=== PATIENT | female | born 1935 | race Caucasian/White ===

== ENCOUNTER 2018-08-15 14:46 | Emergency (ER) | payer MEDICARE, OTHER, SELFPAY ==
[2018-08-15 14:47] VITALS: BP 150/83; PULSE 54; RESP 11; TEMP 36.7; O2SAT 100; BMI 19.5
--- NOTE | 2018-08-15 15:43 | CT_ITS ---
STUDY: CT BRAIN WITHOUT CONTRAST REASON FOR EXAM: Female, 83 years old. Fell and hit back of the head. No loss of consciousness. RADIATION DOSAGE (If Supplied By Facility): CTDIvol = ( 44.99 ) mGy, DLP = ( 779.24 ) mGycm TECHNIQUE: Transaxial CT imaging of the brain was performed without administration of intravenous contrast material. Individualized dose optimization techniques were used for this CT. COMPARISON: No relevant priors. FINDINGS: Very minimal stranding in the subcutaneous fat overlying the left posterior parietal region. Normal calvarium. There is moderate cerebral atrophy with widening of the extra-axial spaces and ventricular dilatation. There are areas of decreased attenuation within the white matter tracts of the supratentorial brain, consistent with microvascular disease changes. 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 Normal left basal ganglia and bilateral thalami. Normal brainstem. Normal cerebellum. There is no intracranial hemorrhage. There are no findings of an acute ischemic infarction. Normal visualized paranasal sinuses. CT/Brain/Head without Contrast IMPRESSION: 1. Chronic involutional changes without evidence of acute intracranial or calvarial abnormality. 2. Minimal soft tissue contusion in the left posterior parietal region. Electronically Signed: Jovanny Meza DO at 16:15 EDT Tel [phone], Service support ,
--- NOTE | 2018-08-15 15:43 | CT_ITS ---
STUDY: CT CERVICAL SPINE WITHOUT CONTRAST REASON FOR EXAM: Female, 83 years old. Fall. Hit back of head. No loss of consciousness. RADIATION DOSAGE (If Supplied By Facility): CTDIvol = ( 13.33 ) mGy, DLP = ( 243.88 ) mGycm TECHNIQUE: High resolution transaxial imaging was performed without contrast material. Sagittal and coronal images were reconstructed. Individualized dose optimization techniques were used for this CT. COMPARISON: None FINDINGS: Normal craniovertebral junction. There are degenerative changes of the anterior atlantoaxial articulation. Normal odontoid process. Normal cervical lordosis. 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 Otherwise normal vertebral bodies and posterior osseous elements. C2-3: Normal endplates. Mild loss of disc height. Mild facet and uncovertebral joint degenerative change. Normal central canal and intervertebral neuroforamina. C3-4: Normal endplates. Slight loss of disc height. Facet and uncovertebral joint degenerative change. Normal central canal. Minimal narrowing of bilateral intervertebral neuroforamina. C4-5: Also disc height with minimal endplate spondylosis. Facet and uncovertebral joint degenerative change. Normal central canal. Narrowing of bilateral intervertebral neuroforamina. C5-6: Marked loss of disc height with endplate spondylosis. Facet and uncovertebral joint degenerative change. Normal central canal period narrowing of bilateral intervertebral neuroforamina. C6-7: Normal endplates. Mild loss of disc height. There is facet joint degenerative change. Normal central canal and intervertebral neuroforamina. C7-T1: Normal endplates. Normal disc height and morphology. Facet joint degenerative change. Normal central canal and intervertebral neuroforamina. There is minimal apical pleural thickening. The lungs are otherwise clear. Atherosclerotic changes in both carotid bifurcations. CT/Spine Cervical without Contras IMPRESSION: Degenerative changes of cervical spine without acute fracture or subluxation. Electronically Signed: Jovanny Meza DO at 16:19 EDT Tel [phone], Service support ,
--- NOTE | 2018-08-15 16:25 | ED.VISSUMM ---
- ER Visit Summary Date of Service: 08/15/18 Chief Complaint: Head injury History of Present Illness: The patient is a 83 F who sustained a fall today striking the left parietal head. She notes pain in her neck and the back of her head. No vomiting. History from the patient is limited due to dementia but her is with her. She is not on any blood thinners Physical Examination: Afebrile vital signs are stable Gen: Well-nourished well-developed Head: Normocephalic tender to palpation in the left parietal occipital region and in the left paraspinal neck and midline. Eyes: Perrl EOMI ENT: TMs clear no rhinorrhea moist mucous membranes Neck: Supple no lymphadenopathy no JVD nontender CVS: Regular rate rhythm no murmurs normal S1-S2 Respiratory: No distress clear to auscultation bilaterally chest nontender Abdomen: Soft nontender nondistended normal bowel sounds no masses Back: Nontender Extremity: Nontender no edema Skin: Normal color no rash Neuro: alert and confused CN II-XII intact normal strength sensation Psych: Normal affect normal mood Test Results: CT head and cervical spine were negative for intracranial hemorrhage or fracture. Emergency Department Course and Treatment: Patient will be discharged home with supportive care return if worsening or concerns Impression: 1. Closed head injury 2. Scalp contusion 3. Cervical muscle strain This note was generated with Oneexchangestreet dictation software. It may contain incorrect words, spelling, and punctuation that were not noted in review of the chart prior to signing ED Disposition - Plan for ED Patient: Disposition: Home or Assisted Living Instructions: ED Head Injury Closed, ED Sprain Strain Neck Referrals: Trace Sanford [Primary Care Provider] - 1 Week if not improving
[2018-08-15 16:53] VITALS: BP 108/75; PULSE 59; RESP 19; O2SAT 98
== END 2018-08-15 17:10 | disposition home or self-care (01) ==
PROVIDERS: Emergency Provider Emergency Medicine; Family Provider Family Medicine
DX: S00.03XA Contusion of scalp, initial encounter (principal); S16.1XXA Strain of muscle, fascia and tendon at neck level, initial encounter; R40.2410 Glasgow coma scale score 13-15, unspecified time; W19.XXXA Unspecified fall, initial encounter; Y93.9 Activity, unspecified; Y92.9 Unspecified place or not applicable; F03.90 Unspecified dementia, unspecified severity, without behavioral disturbance, psychotic disturbance, mood disturbance, and anxiety; E78.00 Pure hypercholesterolemia, unspecified; Z79.899 Other long term (current) drug therapy
CPT/HCPCS: 70450; 72125; 99284

== ENCOUNTER 2018-08-16 10:40 | Observation (INO) | payer MEDICARE, OTHER, SELFPAY ==
[2018-08-15 14:47] VITALS: BMI 19.5
[2018-08-16] VITALS (7 sets, daily range): BP systolic 137–179; BP diastolic 59–84; PULSE 48–59; RESP 9–19; TEMP 36.7–36.8; O2SAT 93–100; BMI 19.3
--- NOTE | 2018-08-16 11:05 | EKG12_ITS ---
Test Reason : FALL Blood Pressure : / mmHG Vent. Rate : 050 BPM Atrial Rate : 050 BPM P-R Int : 264 ms QRS Dur : 132 ms QT Int : 518 ms P-R-T Axes : 042 -10 -16 degrees QTc Int : 472 ms Sinus bradycardia with 1st degree A-V block Right bundle branch block Abnormal ECG Confirmed by RUSSEL SILVA, RENETTA ([id number]), assistant film editor RENAY ZULETA ([id number]) on 08/21/2018 12:58:53 PM Referred By: Odilon Kaur Confirmed By:RENETTA GOODE MD
--- NOTE | 2018-08-16 11:14 | ED.VISSUMM ---
- ER Visit Summary Date of Service: 08/16/18 Chief Complaint: Syncope after fall History of Present Illness: The patient is a 83 F who presents with syncope after falling yesterday. states that she fell yesterday. She was walking into the house and just fell backwards. From what sounds like it was not mechanical. She was seen here and had CAT scans of the head and cervical spine that were negative and was sent home. He states that she keeps passing out today. He describes it as trying to get her up and she just goes limp in his arms. She is not her normal self according to him. The patient herself denies any pain. She does have a history of dementia and does not contribute much to the history. Physical Examination: Vital signs reviewed. HEENT exam unremarkable. Heart is regular rate and rhythm without murmurs. Lungs are clear to auscultation. Abdomen is soft and nontender. Extremities reveal no edema. Skin exam normal. Neurologic exam shows that she has dementia at baseline but otherwise is unremarkable. Test Results: EKG is normal sinus rhythm with rate of 50. Nonspecific ST and T wave changes noted. First-degree AV block noted. Laboratory studies are normal Emergency Department Course and Treatment: The patient's blood pressure improved throughout her stay. is uncomfortable taking the patient home due to her syncopal episodes. She is a high fall risk at home. I also feel would not be safe to send her back home. I discussed with hospitalist for admission. Treatment Plan: [] Disposition: Admit Impression: Syncope This note was generated with [employer] dictation software. It may contain incorrect words, spelling, and punctuation that were not noted in review of the chart prior to signing ED Disposition - Plan for ED Patient: Referrals: Trace Sanford [Primary Care Provider] -
--- NOTE | 2018-08-16 11:16 | NURSING ---
NO OLD EKG TO OBTAIN
[2018-08-16 11:43] LABS: Absolute Lymphocyte Count 1.77 X10^3/ul (0.83-4.51); Absolute Neutrophil Count 4.1 X10^3/uL (2.0-7.7); Basophil# 0.04 X10^3/uL; Basophil% 0.6 % (0-1); Eosinophil# 0.15 X10^3/uL; Eosinophils% 2.2 % (0-5); Hematocrit 42.4 % (37-47); Hemoglobin 13.9 g/dl (12.0-15.0); Lymphocyte # 1.77 X10^3/ul (4.0); Lymphocyte % 26.4 % (19-41); Mean Corp Hgb Conc 32.8 g/gl (32-36); Mean Corpuscular Volume 91.4 fL (81-99); Monocyte# 0.61 X10^3/uL; Monocyte% 9.1 % (0-10); Neutrophil # 4.12 X10^3/uL (2.7-7.7); Neutrophil % 61.6 % (47-70); Platelet Count 162 K/mm3 (150-450); RBC Distribution Width CV 14.7 % (11.6-14.6); RBC Distribution Width SD 47.8 fl (35.1-43.9); Red Blood Count 4.64 M/mm3 (4.2-5.4); White Blood Count 6.7 K/mm3 (4.4-11.0)
[2018-08-16 11:45] LABS: POSITIVE COUNT NO; POSITIVE DIFFERENTIAL NO; POSITIVE MORPHOLOGY NO
[2018-08-16 12:20] LABS: Anion Gap 5 (5-15); BUN 12 mg/dL (7-18); Calcium,Total 9.3 mg/dL (8.5-10.1); Chloride 106 mmol/L (98-107); Creatinine, Serum 0.92 mg/dL (0.55-1.02); EST Glomerular Filtration Rate 62 mL/min (>60); Est Glom Filt Rate - Afr Amer 75 mL/min (>60); Estimated Creatinine Clearance 39.15 ml/min; Glucose 99 mg/dL (74-106); Potassium 3.6 mmol/L (3.5-5.1); Sodium Level 142 mmol/L (136-145)
--- NOTE | 2018-08-16 12:58 | CASEMGMT ---
RN CM Assessment Introduced role of RN CM to patient and patient Joe at bedside.? Patient is alert, h/o Dementia, information obtained from Joe. Care providers, pharmacy, and demographics verified. Presentation: Fell/Syncope yesterday and hit head on concrete, was seen in ER and CT head and Cervical Spine were Negative. Today is having syncopal episodes, going limp in husbands arms. Admit Dx: Syncope Re-Admit: No Barriers/Issues: None. They are Official Residents of [place] and reside there 7 months out of the Year and reside in [place] 5 months Out of the year. PCP: Trace Sanford Specialists: Cardio- Dr Duque Preferred Pharmacy: [facility] Insurance: [facility] A[facility], O Rx Benefit:?Yes LNOK: Joe Jerez LW/HPOA: States yes to both, HPOA- Joe Jerez and states their Dtr is the alternative agent. Living Arrangements:?Lives with in a Condo, 1 small step to enter. ADL?s: Ambulates independently, requires assistance of all ADL's by . Transportation: transports and will on DC DME: None, no preference on DME Company if needed. HHC: None, no preference on Agency if needed. SNF: None, Does not wish to go to a SNF. Goal: Home and open to HHC if recommended. DC PLAN: Home with possible HH. IRENE Bhakta
[2018-08-16] MEDS: 0.9% Normal Saline 1,000 ML 150 ML IV (13:54)
--- NOTE | 2018-08-16 16:35 | PCM.HP.STD ---
Problem List (1) Syncope Status: Acute (2) Orthostatic hypotension Status: Acute History of Present Illness Date of Admission: 08/16/18 Chief Complaint: syncope The patient is a 83 year old F presents with several syncopal episodes. Yesterday she got up, pass out, striking the back of her head was seen in the ED and had CT images that were negative and sent home. Today, upon sitting up from laying she passed out. That occurred 3 times. She was sent to the ED again today. Labs were unremarkable. History is obtained from the ED physician and her as she is a poor informant given confusion from her dementia. Per her , this has not occurred before. Does not eat well, but this is chronic.[] Past Medical History Medical History: Medical History (Last Updated 08/16/18 @ 16:39 by Odilon Kaur DO) Dementia F03.90 Hyperlipidemia E78.5 HTN (hypertension) I10 Allergies Penicillins [PCN] Allergy (Verified 08/16/18 11:18) Swelling Home Medications: Ambulatory Orders Medication Instructions Recorded Amlodipine [Norvasc] 2.5 mg PO DAILY 08/15/18 Atorvastatin Calcium [Lipitor] 10 mg PO QHS 08/15/18 Bisoprolol/Hydrochlorothiazide 2.5 mg PO DAILY 08/15/18 [Ziac 2.5-6.25 mg Tablet] Memantine HCl [Namenda] 10 mg PO BID 08/15/18 Rivastigmine 13.3 mg TD DAILY 08/15/18 Lives: Spouse/ Significant Other Smoking Status: Former smoker Tobacco Use: Cigarettes - *Family History Maternal History Items: Unknown - given her dementia, she is a poor informant. Review of Systems Comment: She is a poor informant given her dementia, adequate review of systems unable to be obtained. Please refer to the HPI for further details. VTE Information - Inpt Only VTE Present on Admission: No VTE Pharm Prophylaxis ordered?: No Reason prophylaxis not ordered:: Procedure Not Indicated Patient Problems: Active and Suspected Problems Syncope (Acute) Orthostatic hypotension (Acute) - Physical Exam General: Alert, No apparent distress, Confused HEENT: Atraumatic, PERRLA, EOMI, Normocephalic Oral: Moist Mucosa, No Gingival or Mucosal Lesions/ Ulcerations Neck: No Nodes, Thyroid Normal Size and Texture Lungs: Clear to auscultation, Normal air movement, No rhonchi, No wheeze Cardiovascular: Regular rate, Regular Rhythm, Normal S1, Normal S2, No murmurs Abdomen: Bowel Sounds Present, Soft, Non Tender, Non-Distended, No Hepato-splenomegaly Extremities: No cyanosis, No Calf Tenderness Skin: No rashes, No breakdown Musculoskeletal: No Tenderness to Palpation of Joints or Extremities, No Muscle Wasting Neurological: Cranial nerves II-XII grossly intact, Motor Exam 5/5 strength throughout Psych/Mental Status: Normal Affect, Appropriate Vital Signs Temp Pulse Resp BP Pulse Ox 36.7 C 52 L 9 L 179/83 H 100 08/16/18 10:44 08/16/18 14:06 08/16/18 10:44 08/16/18 13:47 08/16/18 10:44 Oxygen Delivery Method Room Air Weight: 52.617 kg Body Mass Index (BMI) 19.3 Orthostatic Vital Signs Start: 08/16/18 13:47 Freq: q24h Status: Active Protocol: Activity Type Activity Date Activity User E-Sign Co-Sign Detail Recorded Client Recorded Date Recorded By Document 08/16/18 13:47 MLB [id number] 08/16/18 13:48 MLB 08/16/18 13:47 Orthostatic Vitals Standing -Blood Pressure (90/60-120/80) 148/59 H -Extremity Use Right Arm -Pulse Rate (60-100) 59 L Sitting -Blood Pressure (90/60-120/80) 165/84 H -Extremity Use Right Arm -Pulse Rate (60-100) 52 L Lying -Blood Pressure (90/60-120/80) 179/83 H -Extremity Use Right Arm -Pulse Rate (60-100) 48 L Laboratory Tests Past 24 Hrs 08/16/18 08/16/18 08/16/18 11:22 11:22 11:52 WBC 6.7 RBC 4.64 Hgb 13.9 Hct 42.4 MCV 91.4 MCH 30.0 MCHC 32.8 RDW 14.7 H RDW Differential 47.8 H Plt Count 162 MPV 10.0 Immature Gran % (Auto) 0.100 Neut % (Auto) 61.6 Lymph % (Auto) 26.4 [place] % (Auto) 9.1 Eos % (Auto) 2.2 Baso % (Auto) 0.6 Absolute Neuts (auto) 4.1 Absolute Lymphs (auto) 1.77 Total Counted Not Reportable Sodium Cancelled 142 Potassium Cancelled 3.6 Chloride Cancelled 106 Carbon Dioxide Cancelled 31.0 Anion Gap Cancelled 5 BUN Cancelled 12 Creatinine Cancelled 0.92 Estim Creat Clear Calc Cancelled 39.15 Est GFR (MDRD) Af Amer Cancelled 75 Est GFR (MDRD) Non-Af Cancelled 62 BUN/Creatinine Ratio Cancelled 13.0 Glucose Cancelled 99 Calcium Cancelled 9.3 Troponin I Cancelled < 0.015 Assessment/Plan All Active Problems Syncope (Acute) Orthostatic hypotension (Acute) 1. Syncope: Likely secondary to orthostatic hypotension Patient is a blood pressure drop from laying to standing by 30 points We will also check carotid Dopplers to see if there is any segment carotid stenosis that may be contributing to this Hold her antihypertensives and allow permissive hypertension for now. 2. Orthostatic hypotension IV fluids Recheck orthostats in the morning 3. Hypertension: Will hold amlodipine as well as bisoprolol/HCTZ Permissive hypertension given the orthostatic hypotension 4. Dementia Complicates care Continue with her realistic mean and memantine 5. VTE prophylaxis: Low risk as patient's status is observation and is may be less than 48 hours. Advanced care planning: Spent an additional 15 minutes discussing with the patient's about advanced care planning and description of was involved with CPR. Patient , who is her power of trademark attorney, prefer the patient be DNR Comfort Care arrest at this time. Code Visit OBSV E&M: 23770 Initial observation care L3 Procedures: [id number] Advncd Care Plan 30 Min
--- NOTE | 2018-08-16 16:39 | HP.PCM_ITS ---
Problem List (1) Syncope Status: Acute (2) Orthostatic hypotension Status: Acute History of Present Illness Date of Admission: 08/16/18 Chief Complaint: syncope The patient is a 83 year old F presents with several syncopal episodes. Yesterday she got up, pass out, striking the back of her head was seen in the ED and had CT images that were negative and sent home. Today, upon sitting up from laying she passed out. That occurred 3 times. She was sent to the ED again today. Labs were unremarkable. History is obtained from the ED physician and her as she is a poor informant given confusion from her dementia. Per her , this has not occurred before. Does not eat well, but this is chronic.[] Past Medical History Medical History: Medical History (Last Updated 08/16/18 @ 16:39 by Odilon Kaur DO) Dementia F03.90 Hyperlipidemia E78.5 HTN (hypertension) I10 Allergies Penicillins [PCN] Allergy (Verified 08/16/18 11:18) Swelling Home Medications: Ambulatory Orders Medication Instructions Recorded Amlodipine [Norvasc] 2.5 mg PO DAILY 08/15/18 Atorvastatin Calcium [Lipitor] 10 mg PO QHS 08/15/18 Bisoprolol/Hydrochlorothiazide 2.5 mg PO DAILY 08/15/18 [Ziac 2.5-6.25 mg Tablet] Memantine HCl [Namenda] 10 mg PO BID 08/15/18 Rivastigmine 13.3 mg TD DAILY 08/15/18 Lives: Spouse/ Significant Other Smoking Status: Former smoker Tobacco Use: Cigarettes - *Family History Maternal History Items: Unknown - given her dementia, she is a poor informant. Review of Systems Comment: She is a poor informant given her dementia, adequate review of systems unable to be obtained. Please refer to the HPI for further details. VTE Information - Inpt Only VTE Present on Admission: No VTE Pharm Prophylaxis ordered?: No Reason prophylaxis not ordered:: Procedure Not Indicated Patient Problems: Active and Suspected Problems Syncope (Acute) Orthostatic hypotension (Acute) - Physical Exam General: Alert, No apparent distress, Confused HEENT: Atraumatic, PERRLA, EOMI, Normocephalic Oral: Moist Mucosa, No Gingival or Mucosal Lesions/ Ulcerations Neck: No Nodes, Thyroid Normal Size and Texture Lungs: Clear to auscultation, Normal air movement, No rhonchi, No wheeze Cardiovascular: Regular rate, Regular Rhythm, Normal S1, Normal S2, No murmurs Abdomen: Bowel Sounds Present, Soft, Non Tender, Non-Distended, No Hepato- splenomegaly Extremities: No cyanosis, No Calf Tenderness Skin: No rashes, No breakdown Musculoskeletal: No Tenderness to Palpation of Joints or Extremities, No Muscle Wasting Neurological: Cranial nerves II-XII grossly intact, Motor Exam 5/5 strength throughout Psych/Mental Status: Normal Affect, Appropriate Vital Signs Temp Pulse Resp BP Pulse Ox 36.7 C 52 L 9 L 179/83 H 100 08/16/18 10:44 08/16/18 14:06 08/16/18 10:44 08/16/18 13:47 08/16/18 10:44 Oxygen Delivery Method Room Air Weight: 52.617 kg Body Mass Index (BMI) 19.3 Orthostatic Vital Signs Start: 08/16/18 13:47 Freq: q24h Status: Active Protocol: Activity Type Activity Date Activity User E-Sign Co-Sign Detail Recorded Client Recorded Date Recorded By Document 08/16/18 13:47 MLB [id number] 08/16/18 13:48 MLB 08/16/18 13:47 Orthostatic Vitals Standing -Blood Pressure (90/60-120/80) 148/59 H -Extremity Use Right Arm -Pulse Rate (60-100) 59 L Sitting -Blood Pressure (90/60-120/80) 165/84 H -Extremity Use Right Arm -Pulse Rate (60-100) 52 L Lying -Blood Pressure (90/60-120/80) 179/83 H -Extremity Use Right Arm -Pulse Rate (60-100) 48 L Laboratory Tests Past 24 Hrs 08/16/18 08/16/18 08/16/18 11:22 11:22 11:52 WBC 6.7 RBC 4.64 Hgb 13.9 Hct 42.4 MCV 91.4 MCH 30.0 MCHC 32.8 RDW 14.7 H RDW Differential 47.8 H Plt Count 162 MPV 10.0 Immature Gran % (Auto) 0.100 Neut % (Auto) 61.6 Lymph % (Auto) 26.4 Rains % (Auto) 9.1 Eos % (Auto) 2.2 Baso % (Auto) 0.6 Absolute Neuts (auto) 4.1 Absolute Lymphs (auto) 1.77 Total Counted Not Reportable Sodium Cancelled 142 Potassium Cancelled 3.6 Chloride Cancelled 106 Carbon Dioxide Cancelled 31.0 Anion Gap Cancelled 5 BUN Cancelled 12 Creatinine Cancelled 0.92 Estim Creat Clear Calc Cancelled 39.15 Est GFR (MDRD) Af Amer Cancelled 75 Est GFR (MDRD) Non-Af Cancelled 62 BUN/Creatinine Ratio Cancelled 13.0 Glucose Cancelled 99 Calcium Cancelled 9.3 Troponin I Cancelled < 0.015 Assessment/Plan All Active Problems Syncope (Acute) Orthostatic hypotension (Acute) 1. Syncope: * Likely secondary to orthostatic hypotension * Patient is a blood pressure drop from laying to standing by 30 points * We will also check carotid Dopplers to see if there is any segment carotid stenosis that may be contributing to this * Hold her antihypertensives and allow permissive hypertension for now. 2. Orthostatic hypotension * IV fluids * Recheck orthostats in the morning 3. Hypertension: * Will hold amlodipine as well as bisoprolol/HCTZ * Permissive hypertension given the orthostatic hypotension 4. Dementia * Complicates care * Continue with her realistic mean and memantine 5. VTE prophylaxis: Low risk as patient's status is observation and is may be less than 48 hours. Advanced care planning: Spent an additional 15 minutes discussing with the patient's about advanced care planning and description of was involved with CPR. Patient , who is her power of family law attorney, prefer the patient be DNR Comfort Care arrest at this time. Code Visit OBSV E&M: 33732 Initial observation care L3 Procedures: [id number] Advncd Care Plan 30 Min
[2018-08-16] MEDS: Rivastigmine 9.5mg Patch 1 PATCH TRANSDERM. (16:40)
[2018-08-16] MEDS: Memantine Hydrochloride 10 MG Tablet PO ×2 (16:41→21:16)
--- NOTE | 2018-08-16 16:46 | CDU_ITS ---
Reason For Study: syncope Rt. Velocities/BP Lt. Velocities/BP Prox CCA 73.4/12.1 cm/sec. Prox CCA 66.2/13.5 cm/sec. Mid CCA 64.3/13.4 cm/sec. Mid CCA 64.0/15.7 cm/sec. Dist CCA 47.6/12.4 cm/sec. Dist CCA 48.7/12.4 cm/sec. Prox ICA 59.7/10.2 cm/sec. Prox ICA 43.2/10.2 cm/sec. Mid ICA 48.7/8.0 cm/sec. Mid ICA 83.8/21.2 cm/sec. Dist ICA 49.8/12.4 cm/sec. Dist ICA 67.8/15.6 cm/sec. Rt. ICA/CCA = .8. Lt. ICA/CCA = 1.3. Prox ECA 57.5/10.2 cm/sec. Prox ECA 73.9/9.1 cm/sec. Rt. Vert. 31.1/8.0 cm/sec. Lt. Vert. 36.9/8.1 cm/sec. Right Extracranial There is intimal thickening but no significant atherosclerotic plaque noted in the right common carotid artery. There is heterogeneous, irregular atherosclerotic plaque noted in the right internal carotid artery. There is intimal thickening but no significant atherosclerotic plaque noted in the right external carotid artery. Antegrade flow is noted in the right vertebral artery. Left Extracranial There is intimal thickening but no significant atherosclerotic plaque noted in the left common carotid artery. There is intimal thickening but no significant atherosclerotic plaque noted in the left internal carotid artery. There is intimal thickening but no significant atherosclerotic plaque noted in the left external carotid artery. Antegrade flow is noted in the left vertebral artery. There is heterogeneous, smooth atherosclerotic plaque noted in the left bulb. Procedure Carotid Duplex [id number]. The exam was diagnostic. Exam performed portable in patient room. Interpretation Summary Irregular plague at the proximal right internal carotid with <50% stenosis. <50% stenosis right external carotid <50% stenosis left internal carotid <50% stenosis left external carotid Patent and antegrade vertebrals bilaterally Ordering Physician: Odilon Kaur Performed By: Laz Ayoub RVT
[2018-08-16] MEDS: Atorvastatin Calcium 20 MG Tablet PO (21:16)
[2018-08-17] VITALS (7 sets, daily range): BP systolic 109–151; BP diastolic 68–88; PULSE 55–88; RESP 16–18; TEMP 36.4–37.2; O2SAT 95–97
[2018-08-17] MEDS: Rivastigmine 9.5mg Patch 1 PATCH TRANSDERM. (09:31)
[2018-08-17] MEDS: Memantine Hydrochloride 10 MG Tablet PO (09:36)
--- NOTE | 2018-08-17 11:09 | CASEMGMT ---
Patient has a Healthcare Power of Worship Director and a Healthcare Living Will. She and her are aware they are not on file at [facility]. Trina DREW MSW
--- NOTE | 2018-08-17 13:49 | DCINST_ITS ---
- Discharge Diagnoses Current Active Problems: Current Active and Chronic Problems (Last Updated 08/16/18 @ 16:39 by Odilon Kaur DO) Syncope (Acute) Orthostatic hypotension (Acute) You will use the following diet at home:: Cardiac Your food should be the consistency of: Regular Your liquids should be the consistency of: Regular/Thin Discharge Activity: Return to Normal Activity, May Not Drive Allergies/Adverse Reactions: Allergies Penicillins [PCN] Allergy (Verified 08/16/18 11:18) Swelling Medications to take at Discharge Atorvastatin Calcium [Lipitor] 10 mg PO QHS 08/15/18 Memantine HCl [Namenda] 10 mg PO BID 08/15/18 Rivastigmine 13.3 mg TD DAILY 08/15/18 Primary Care Physician: Trace Sanford [Primary Care Provider] - Please follow up with your Primary Care Physician in: 1-2 weeks Test Results: Test results from this visit will be discussed in further detail at your follow- up appointment, if applicable. Please Follow Up With: Cardiology When: 2-3 weeks Proposed Discharge Date: 08/17/18
--- NOTE | 2018-08-17 13:49 | PCM.DC.SUM ---
<Scottie Mckeon - Last Filed: 08/17/18 14:06> Discharge Date and Diagnosis Date of Admission: 08/16/18 Date of Discharge: 08/17/18 - Primary Discharge Diagnosis Active and Suspected Problems (Last Updated 08/16/18 @ 16:39 by Odilon Kaur DO) Syncope secondary to orthostatic hypotension, secondary to polypharmacy History of hypertension History of dementia Hyperlipidemia Hospital Course and Treatment Imaging Results: CT/Brain/Head without Contrast IMPRESSION: 1. Chronic involutional changes without evidence of acute intracranial or calvarial abnormality. 2. Minimal soft tissue contusion in the left posterior parietal region. CT/Spine Cervical without Contras IMPRESSION: Degenerative changes of cervical spine without acute fracture or subluxation. Carotid US - final report pending. Operations: None Procedures: None Summary of Care Provided: Hospital course: The patient is a 83 year old F with a past medical history of orthostatic hypotension and syncope secondary to medications, also with a history of hypertension, hyperlipidemia, dementia, who presented to the emergency room with 3 syncopal episodes at home. The day prior she had had a syncopal episode as well, she had come to the emergency room as she had struck the back of her head, CT images showed soft tissue swelling no other acute processes and she was sent home. The following day she tried to get out of bed 3 times and passed out each time. She was brought back to the emergency room. She had significant orthostatic hypotension, EKG showing mild sinus bradycardia with a first-degree AV block, negative troponin. She was given IV fluids, and her home hypertension medications were held. The following morning she underwent a carotid ultrasound which did show an irregular plaque in the right ICA, however the final read out is pending. We attempted to read her loop recorder however it is no longer functional. She had this placed about 4 years ago after having similar events-syncope while adjusting blood pressure medications. The following morning her orthostatic vitals were negative, and her BP and pulse were in normal range. She was discharged home in stable condition. Her antihypertensive medications were discontinued at discharge. We advised her to follow-up with her PCP in 1 to 2 weeks, and to follow-up with cardiology in 2 to 3 weeks. This patient was seen by Scottie Mckeon PA-C under the supervision of Doctor Natasha. [] - Physical Exam General: Alert, Oriented x3, Cooperative HEENT: Atraumatic, PERRLA, EOMI, Normocephalic Neck: Supple, No JVD, Negative Carotid Bruits Lungs: Clear to auscultation, Normal air movement Cardiovascular: Regular rate, No murmurs Abdomen: Bowel Sounds Present, Soft, Non Tender Extremities: No edema, Capillary Refill Less than 3 Seconds Skin: No rashes, No breakdown Musculoskeletal: No Tenderness to Palpation of Joints or Extremities Neurological: Cranial nerves II-XII grossly intact Psych/Mental Status: Normal Affect, Appropriate, Alert and oriented to time, place, person, mood and affect Vital Signs Temp Pulse Resp BP Pulse Ox 97.6 F L 67 16 126/75 H 96 08/17/18 09:27 08/17/18 11:40 08/17/18 09:27 08/17/18 11:40 08/17/18 09:27 Oxygen Delivery Method Room Air Weight: 116 lb 0.01 oz Body Mass Index (BMI) 19.3 Orthostatic Vital Signs Start: 08/16/18 13:47 Freq: 0600 Status: Active Protocol: Activity Type Activity Date Activity User E-Sign Co-Sign Detail Recorded Client Recorded Date Recorded By Document 08/17/18 11:40 RYW [id number] 08/17/18 11:58 RYW 08/17/18 11:40 Orthostatic Vitals Standing -Blood Pressure (90/60-120/80) 119/68 -Extremity Use Left Arm -Pulse Rate (60-100) 73 Sitting -Blood Pressure (90/60-120/80) 109/73 -Extremity Use Left Arm -Pulse Rate (60-100) 67 Lying -Blood Pressure (90/60-120/80) 126/75 H -Extremity Use Left Arm -Pulse Rate (60-100) 67 Intake and Output for Last 24 Hours 08/15/18 08/16/18 08/17/18 23:59 23:59 23:59 Intake Total 1089 / 1089 752 / 752 Output Total 400 / 400 350 / 350 Balance 689 / 689 402 / 402 Discharge Diet: Low fat/ Low Cholesterol, 2000 mg Sodium Diet Discharge Activity: Return to Normal Activity, May Not Drive Home Medications: Medications to take at Discharge Atorvastatin Calcium [Lipitor] 10 mg PO QHS 08/15/18 Memantine HCl [Namenda] 10 mg PO BID 08/15/18 Rivastigmine 13.3 mg TD DAILY 08/15/18 Primary Care Physician: Trace Sanford [Primary Care Provider] - Please follow up with your Primary Care Physician in: 1-2 weeks Please Follow Up With: Cardiology When: 2-3 weeks Disposition: Home Minutes spent on discharge:: 35 Patient Condition:: Stable Medical Necessity - Tobacco Use Smoking Status: Former smoker Tobacco Use: Cigarettes Meaningful Use Info Meaningful Use Diagnoses (Choose all that apply): None applicable <Odilon Kaur - Last Filed: 08/17/18 15:23> Hospital Course and Treatment Operations: None Procedures: None Summary of Care Provided: Patient seen and examined independently. Data reviewed. I agree with the above note by the physician assistant professor surgical technology. The patient is a 83 year old F resents with syncopal episodes. Patient was seen prior to admission where she had stood up and then passed out hitting her head. Sent home. But at home patient had syncopal episode just sitting up from laying. Presented to the emergency room and was evaluated. Patient did have positive orthostatic vital signs and her antihypertensives were held. Orthostatic vital signs eventually did improve and patient has remained asymptomatic. Discussed with the patient's , as patient is demented and would not be able to retain information, that the plan is to continue to hold antihypertensives at this time given the orthostatic hypotension and right now the risks outweigh the benefits. Also discussed with the patient's and confirm that the patient's CODE STATUS is DNR Comfort Care arrest. [] - Physical Exam General: Alert, Cooperative HEENT: Atraumatic, Normocephalic Lungs: Clear to auscultation, Normal air movement, No rhonchi, No wheeze Cardiovascular: Regular rate, Regular Rhythm, Normal S1, Normal S2, No murmurs Abdomen: Bowel Sounds Present, Soft, Non Tender, Non-Distended Extremities: No edema, No Calf Tenderness Skin: No rashes, No breakdown Psych/Mental Status: Normal Affect, Appropriate Vital Signs Temp Pulse Resp BP Pulse Ox 36.4 C L 67 16 126/75 H 96 08/17/18 09:27 08/17/18 11:40 08/17/18 09:27 08/17/18 11:40 08/17/18 09:27 Oxygen Delivery Method Room Air Weight: 52.617 kg Body Mass Index (BMI) 19.3 Intake and Output for Last 24 Hours 08/15/18 08/16/18 08/17/18 23:59 23:59 23:59 Intake Total 1089 / 1089 752 / 752 Output Total 400 / 400 350 / 350 Balance 689 / 689 402 / 402 Discharge Diet: Low fat/ Low Cholesterol, 2000 mg Sodium Diet Discharge Activity: Return to Normal Activity, May Not Drive Disposition: Home Minutes spent on discharge:: 35 Medical Necessity - Tobacco Use Smoking Status: Former smoker Tobacco Use: Cigarettes Meaningful Use Info Meaningful Use Diagnoses (Choose all that apply): None applicable Code Visit OBSV E&M: 35514 Observation care discharge
--- NOTE | 2018-08-17 13:55 | DS.PCM_ITS ---
Addendum entered and electronically signed by LEE ANN Perez 08/17/18 14:06: Code Visit Addendum: Discharged home with home health. Original Note: <Scottie Mckeon - Last Filed: 08/17/18 14:06> Discharge Date and Diagnosis Date of Admission: 08/16/18 Date of Discharge: 08/17/18 - Primary Discharge Diagnosis Active and Suspected Problems (Last Updated 08/16/18 @ 16:39 by Odilon Kaur DO) Syncope secondary to orthostatic hypotension, secondary to polypharmacy History of hypertension History of dementia Hyperlipidemia Hospital Course and Treatment Imaging Results: CT/Brain/Head without Contrast IMPRESSION: 1. Chronic involutional changes without evidence of acute intracranial or calvarial abnormality. 2. Minimal soft tissue contusion in the left posterior parietal region. CT/Spine Cervical without Contras IMPRESSION: Degenerative changes of cervical spine without acute fracture or subluxation. Carotid US - final report pending. Operations: None Procedures: None Summary of Care Provided: Hospital course: The patient is a 83 year old F with a past medical history of orthostatic hypotension and syncope secondary to medications, also with a history of hypertension, hyperlipidemia, dementia, who presented to the emergency room with 3 syncopal episodes at home. The day prior she had had a syncopal episode as well, she had come to the emergency room as she had struck the back of her head, CT images showed soft tissue swelling no other acute processes and she was sent home. The following day she tried to get out of bed 3 times and passed out each time. She was brought back to the emergency room. She had significant orthostatic hypotension, EKG showing mild sinus bradycardia with a first-degree AV block, negative troponin. She was given IV fluids, and her home hypertension medications were held. The following morning she underwent a carotid ultrasound which did show an irregular plaque in the right ICA, however the final read out is pending. We attempted to read her loop recorder however it is no longer functional. She had this placed about 4 years ago after having similar events- syncope while adjusting blood pressure medications. The following morning her orthostatic vitals were negative, and her BP and pulse were in normal range. She was discharged home in stable condition. Her antihypertensive medications were discontinued at discharge. We advised her to follow-up with her PCP in 1 to 2 weeks, and to follow-up with cardiology in 2 to 3 weeks. This patient was seen by Scottie Mckeon PA-C under the supervision of Doctor Natasha. [] - Physical Exam General: Alert, Oriented x3, Cooperative HEENT: Atraumatic, PERRLA, EOMI, Normocephalic Neck: Supple, No JVD, Negative Carotid Bruits Lungs: Clear to auscultation, Normal air movement Cardiovascular: Regular rate, No murmurs Abdomen: Bowel Sounds Present, Soft, Non Tender Extremities: No edema, Capillary Refill Less than 3 Seconds Skin: No rashes, No breakdown Musculoskeletal: No Tenderness to Palpation of Joints or Extremities Neurological: Cranial nerves II-XII grossly intact Psych/Mental Status: Normal Affect, Appropriate, Alert and oriented to time, place, person, mood and affect Vital Signs Temp Pulse Resp BP Pulse Ox 97.6 F L 67 16 126/75 H 96 08/17/18 09:27 08/17/18 11:40 08/17/18 09:27 08/17/18 11:40 08/17/18 09:27 Oxygen Delivery Method Room Air Weight: 116 lb 0.01 oz Body Mass Index (BMI) 19.3 Orthostatic Vital Signs Start: 08/16/18 13:47 Freq: 0600 Status: Active Protocol: Activity Type Activity Date Activity User E-Sign Co-Sign Detail Recorded Client Recorded Date Recorded By Document 08/17/18 11:40 RYW [id number] 08/17/18 11:58 RYW 08/17/18 11:40 Orthostatic Vitals Standing -Blood Pressure (90/60-120/80) 119/68 -Extremity Use Left Arm -Pulse Rate (60-100) 73 Sitting -Blood Pressure (90/60-120/80) 109/73 -Extremity Use Left Arm -Pulse Rate (60-100) 67 Lying -Blood Pressure (90/60-120/80) 126/75 H -Extremity Use Left Arm -Pulse Rate (60-100) 67 Intake and Output for Last 24 Hours 08/15/18 08/16/18 08/17/18 23:59 23:59 23:59 Intake Total 1089 / 1089 752 / 752 Output Total 400 / 400 350 / 350 Balance 689 / 689 402 / 402 Discharge Diet: Low fat/ Low Cholesterol, 2000 mg Sodium Diet Discharge Activity: Return to Normal Activity, May Not Drive Home Medications: Medications to take at Discharge Atorvastatin Calcium [Lipitor] 10 mg PO QHS 08/15/18 Memantine HCl [Namenda] 10 mg PO BID 08/15/18 Rivastigmine 13.3 mg TD DAILY 08/15/18 Primary Care Physician: Trace Sanford [Primary Care Provider] - Please follow up with your Primary Care Physician in: 1-2 weeks Please Follow Up With: Cardiology When: 2-3 weeks Disposition: Home Minutes spent on discharge:: 35 Patient Condition:: Stable Medical Necessity - Tobacco Use Smoking Status: Former smoker Tobacco Use: Cigarettes Meaningful Use Info Meaningful Use Diagnoses (Choose all that apply): None applicable <Odilon Kaur - Last Filed: 08/17/18 15:23> Hospital Course and Treatment Operations: None Procedures: None Summary of Care Provided: Patient seen and examined independently. Data reviewed. I agree with the above note by the physician fire assistant. The patient is a 83 year old F resents with syncopal episodes. Patient was seen prior to admission where she had stood up and then passed out hitting her head. Sent home. But at home patient had syncopal episode just sitting up from laying. Presented to the emergency room and was evaluated. Patient did have positive orthostatic vital signs and her antihypertensives were held. Orthostatic vital signs eventually did improve and patient has remained asymptomatic. Discussed with the patient's , as patient is demented and would not be able to retain information, that the plan is to continue to hold antihypertensives at this time given the orthostatic hypotension and right now the risks outweigh the benefits. Also discussed with the patient's and confirm that the patient's CODE STATUS is DNR Comfort Care arrest. [] - Physical Exam General: Alert, Cooperative HEENT: Atraumatic, Normocephalic Lungs: Clear to auscultation, Normal air movement, No rhonchi, No wheeze Cardiovascular: Regular rate, Regular Rhythm, Normal S1, Normal S2, No murmurs Abdomen: Bowel Sounds Present, Soft, Non Tender, Non-Distended Extremities: No edema, No Calf Tenderness Skin: No rashes, No breakdown Psych/Mental Status: Normal Affect, Appropriate Vital Signs Temp Pulse Resp BP Pulse Ox 36.4 C L 67 16 126/75 H 96 08/17/18 09:27 08/17/18 11:40 08/17/18 09:27 08/17/18 11:40 08/17/18 09:27 Oxygen Delivery Method Room Air Weight: 52.617 kg Body Mass Index (BMI) 19.3 Intake and Output for Last 24 Hours 08/15/18 08/16/18 08/17/18 23:59 23:59 23:59 Intake Total 1089 / 1089 752 / 752 Output Total 400 / 400 350 / 350 Balance 689 / 689 402 / 402 Discharge Diet: Low fat/ Low Cholesterol, 2000 mg Sodium Diet Discharge Activity: Return to Normal Activity, May Not Drive Disposition: Home Minutes spent on discharge:: 35 Medical Necessity - Tobacco Use Smoking Status: Former smoker Tobacco Use: Cigarettes Meaningful Use Info Meaningful Use Diagnoses (Choose all that apply): None applicable Code Visit OBSV E&M: 21241 Observation care discharge
--- NOTE | 2018-08-17 14:04 | CASEMGMT ---
RN ROSIE NOTE: Reviewed PT/OT notes. To room to talk with pt's . agreeable to HHC and states has no preference of HHC agency. Agreeable to [facility]. Order placed for HHC: retirement and OT eval and treat. Call placed to Eva @ [facility] and referral made. She was made aware pt is discharging today. Edilberto ANDRADE RN CM
== END 2018-08-17 14:06 | disposition home health service (06) ==
LOC: ED 10:58 → PCU 13:00
PROVIDERS: Emergency Provider Emergency Medicine; Family Provider Family Medicine
DX: I95.1 Orthostatic hypotension (principal); F03.90 Unspecified dementia, unspecified severity, without behavioral disturbance, psychotic disturbance, mood disturbance, and anxiety; E78.5 Hyperlipidemia, unspecified; I10 Essential (primary) hypertension; Z79.899 Other long term (current) drug therapy; Z87.891 Personal history of nicotine dependence
CPT/HCPCS: 80048; 84484; 85025; 93005; 93880; 96360; 96361; 97161; 97166; 97802; 99218; 99285; J7030; A4216; G0378

== ENCOUNTER 2018-08-28 22:12 | Emergency (ER) | payer MEDICARE, OTHER, SELFPAY ==
[2018-08-16 13:30] VITALS: BMI 19.3
[2018-08-28 22:13] VITALS: BP 149/86; PULSE 65; RESP 16; TEMP 36.4; O2SAT 97; BMI 18.6
--- NOTE | 2018-08-28 22:28 | EKG12_ITS ---
Test Reason : Blood Pressure : / mmHG Vent. Rate : 066 BPM Atrial Rate : 066 BPM P-R Int : 256 ms QRS Dur : 126 ms QT Int : 420 ms P-R-T Axes : 046 -58 001 degrees QTc Int : 440 ms Sinus rhythm with 1st degree A-V block Left axis deviation Low Voltage QRS (Limb Leads)) Right bundle branch block Abnormal ECG Confirmed by RUSSEL SILVA, RENETTA ([id number]), health editor KAYLEIGH ISLAS ([id number]) on 08/30/2018 11:17:09 AM Referred By: JARRELL Confirmed By:RENETTA GOODE MD
--- NOTE | 2018-08-28 22:40 | RAD_ITS ---
HISTORY:dizziness dizziness EXAM: XR Chest 1 View: COMPARISON: None FINDINGS: # of images incl. paperwork: 1 LINES/DEVICES: Loop recorder overlying the heart LUNGS: Lungs are clear. There are hyperinflated suggesting emphysematous change.. No consolidation, edema or effusion. No pneumothorax. MEDIASTINUM AND CARDIOVASCULAR STRUCTURES: Cardiac silhouette not enlarged. The aorta is tortuous BONES AND SOFT TISSUES: Unremarkable. RAD/Chest 1 View (Portable) IMPRESSION: No radiographic evidence of acute cardiopulmonary disease. Emphysematous change Loop recorder at 2257 Reported and signed by: Laura Barillas DO Electronically Signed: Laura Barillas DO at 22:56 EDT Tel , Service support ,
[2018-08-28 22:47] LABS: Absolute Lymphocyte Count 2.37 X10^3/ul (0.83-4.51); Absolute Neutrophil Count 3.1 X10^3/uL (2.0-7.7); Basophil# 0.04 X10^3/uL; Basophil% 0.6 % (0-1); Eosinophil# 0.18 X10^3/uL; Eosinophils% 2.8 % (0-5); Hematocrit 40.1 % (37-47); Hemoglobin 13.5 g/dl (12.0-15.0); Lymphocyte # 2.37 X10^3/ul (4.0); Lymphocyte % 37.4 % (19-41); Mean Corp Hgb Conc 33.7 g/gl (32-36); Mean Corpuscular Hgb 30.6 pg (27.0-32.0); Mean Corpuscular Volume 90.9 fL (81-99); Mean Platelet Vol. 9.9 fl (6.2-12.0); Monocyte# 0.61 X10^3/uL; Monocyte% 9.6 % (0-10); Neutrophil # 3.12 X10^3/uL (2.7-7.7); Neutrophil % 49.4 % (47-70); Platelet Count 177 K/mm3 (150-450); RBC Distribution Width CV 14.4 % (11.6-14.6); RBC Distribution Width SD 48.4 fl (35.1-43.9); Red Blood Count 4.41 M/mm3 (4.2-5.4); White Blood Count 6.3 K/mm3 (4.4-11.0)
[2018-08-28 22:50] LABS: POSITIVE COUNT NO; POSITIVE DIFFERENTIAL NO; POSITIVE MORPHOLOGY NO
[2018-08-28 22:53] VITALS: BP 143/73; BP 148/76; PULSE 72; PULSE 76
[2018-08-28] MEDS: 0.9% Normal Saline 1,000 ML 999 ML IV (23:02)
[2018-08-28 23:05] LABS: Anion Gap 7 (5-15); BUN 11 mg/dL (7-18); BUN/Creat Ratio 11.3 RATIO (10-20); Calcium,Total 9.5 mg/dL (8.5-10.1); Chloride 107 mmol/L (98-107); Creatinine, Serum 0.97 mg/dL (0.55-1.02); EST Glomerular Filtration Rate 58 mL/min (>60); Est Glom Filt Rate - Afr Amer 71 mL/min (>60); Estimated Creatinine Clearance 36.99 ml/min; Glucose 121 mg/dL (74-106); Potassium 3.4 mmol/L (3.5-5.1); Sodium Level 139 mmol/L (136-145)
[2018-08-28 23:12] VITALS: BP 143/78; PULSE 74; RESP 19; O2SAT 97
[2018-08-28 23:22] LABS: Red Blood Cells-Urine 0 SEEN /hpf (0-5)
[2018-08-28 23:25] LABS: Color, Urine Yellow (Yellow); Glucose, Dipstick Normal (Normal); Ketone-Dipstick Negative (Negative); Leukocyte Esterase-Dipstick Negative /ul (Negative); Nitrite-Dipstick Negative (Negative); Occult Blood-Urine Negative /ul (Negative); Protein-Dipstick Negative (Negative); Urine Bilirubin Dipstick Negative (Negative); Urine Clarity Clear (Clear); Urine Urobilinogen Normal (Normal); Urine pH 6.5 (5.0 - 8.0)
[2018-08-28 23:31] LABS: Bacteria RARE /hpf (None Seen); Mucous, Urine RARE /hpf (<or=2+); Squamous Epithelial Cells - UA 0 SEEN /hpf (5-10); White Blood Cells 0-5 SEEN /hpf (0-5)
--- NOTE | 2018-08-28 23:46 | ED.DCSUM_ITS ---
- ER Visit Summary Date of Service: 08/28/18 Chief Complaint: Syncope History of Present Illness: The patient is a 83 F who presents after syncopal episode. History is limited due to patient's dementia and history is provided by . He was getting her ready for bed when she slumped into his arms. She did not fall there were no injuries. She had a recent hospitalization for the same. Is felt to be due to orthostatic hypotension. Her blood pressure medications were discontinued. She was set up with home health and occupational therapy. She otherwise has had no complaints. Physical Examination: Afebrile vitals unremarkable Moist mucous membranes Heart regular rate and rhythm Lungs clear Abdomen soft Alert Test Results: EKG shows sinus rhythm at a rate of 66 with a first-degree AV block unchanged from prior. Labs unremarkable with negative troponin normal urinalysis normal CBC and BMP. Orthostatic vital signs are negative. Chest x- ray shows no acute disease. Emergency Department Course and Treatment: Patient was treated with IV fluids. Her work-up is unremarkable. She just was hospitalized for the same. I explained to family a do not see benefit to rehospitalization at this time. She may need outpatient follow-up with cardiology if symptoms continue. Patient discharged. Treatment Plan: [] Disposition: Discharge Impression: Syncope This note was generated with [employer] dictation software. It may contain incorrect words, spelling, and punctuation that were not noted in review of the chart prior to signing ED Disposition - Plan for ED Patient: Referrals: Trace Sanford [Primary Care Provider] -
--- NOTE | 2018-08-28 23:46 | ED.DEP ---
ED Disposition - Plan for ED Patient: Instructions: ED Fainting Unkn Cause Referrals: Trace Sanford [Primary Care Provider] -
[2018-08-28 23:51] VITALS: BP 157/99; PULSE 69; RESP 18; O2SAT 98
== END 2018-08-29 00:04 | disposition home or self-care (01) ==
LOC: ED 22:33
PROVIDERS: Emergency Provider Emergency Medicine; Family Provider Family Medicine
DX: R55 Syncope and collapse (principal); I44.0 Atrioventricular block, first degree; F03.90 Unspecified dementia, unspecified severity, without behavioral disturbance, psychotic disturbance, mood disturbance, and anxiety; E78.00 Pure hypercholesterolemia, unspecified; Z79.899 Other long term (current) drug therapy
CPT/HCPCS: 36415; 71045; 80048; 81001; 84484; 85025; 93005; 96360; 99284; J7030; A4216

== ENCOUNTER 2018-11-29 09:16 | Emergency (ER) | payer MEDICARE, OTHER, SELFPAY ==
[2018-11-29 09:17] VITALS: BP 123/82; PULSE 80; RESP 14; TEMP 36.6; O2SAT 96; BMI 18.6
[2018-11-29 09:23] VITALS: PULSE 84
--- NOTE | 2018-11-29 09:35 | EKG12_ITS ---
Test Reason : DIZZINESS Blood Pressure : / mmHG Vent. Rate : 079 BPM Atrial Rate : 079 BPM P-R Int : 272 ms QRS Dur : 130 ms QT Int : 416 ms P-R-T Axes : 046 -68 004 degrees QTc Int : 477 ms Sinus rhythm with 1st degree A-V block Left axis deviation Right bundle branch block Abnormal ECG Confirmed by JUAN MIGUEL SILVA, SARAH ([id number]), makeup editor KAYLEIGH ISLAS ([id number]) on 12/01/2018 11:38:03 AM Referred By: NEVAEH Confirmed By:ROBERTO CARLOS BULLARD MD
--- NOTE | 2018-11-29 09:41 | RAD_ITS ---
STUDY: X-RAY CHEST REASON FOR EXAM: Female, 83 years old. Syncopal episode. TECHNIQUE: Single AP portable view of the chest. COMPARISON: Comparison is made with prior study dated August 28, 2018. FINDINGS: EKG electrodes are seen. The lungs are clear and expanded. There is no demonstrated pleural abnormality. Normal size heart. Normal mediastinum and oxana. Normal visualized pulmonary arteries. There is atherosclerotic calcification of the aortic arch with tortuosity. There are diffuse degenerative changes of the visualized thoracic spine. Normal visualized ribs, clavicles, and shoulders. There is no demonstrated abnormality of the visualized soft tissue structures of the upper abdomen. RAD/Chest 1 View (Portable) IMPRESSION: Hyperinflation. The lungs are clear. Electronically Signed: Jose Luis Rooney, at 10:11 EDT , Service support ,
--- NOTE | 2018-11-29 09:51 | ED.DCSUM_ITS ---
History of Present Illness Chief Complaint: Fatigue Informant: Family Narrative: Patient has advanced dementia, EMS was called by her after she had 2 syncopal episodes today. Apparently she had a bad day yesterday where she did not eat or drink however today she passed out 2 times. History is difficult from her since she is oriented to person only however per no recent fever or chills, no recent rash and no recent difficulty breathing. No recent trauma although she did sustain a head injury but was brought to the emergency department. Past Medical History - Allergies and Home Meds Allergies/Adverse Reactions: Allergies Penicillins [PCN] Allergy (Verified 08/28/18 22:17) Swelling Primary Care Physician: Trace Sanford [Primary Care Provider] - Past Medical History: - - Reviewed in [employer] Surgical History: noncontributory Lives: Spouse/ Significant Other Smoking Status: Never smoker - Family History Maternal Family History: Reports: Unknown - given her dementia, she is a poor informant. Review of Systems ROS: Unable to Obtain - Secondary to advanced dementia Physical Exam Vital Signs/Narrative: Vital Signs Temp Pulse Resp BP Pulse Ox 11/29/18 09:23 84 11/29/18 09:17 97.8 F 80 14 123/82 H 96 General: Well developed, No Acute Distress, - - She is acutely demented, she is pleasant, she appears well kept Head: Normocephalic Eyes: Perrl, EOMI ENT: Dry mucous membranes Neck: Supple Cardiovascular: Regular rate, Regular rhythm Respiratory: No distress, CTA bilaterally Abdomen: Soft, Nontender Rectal: Deferred Back: Nontender, Normal Inspection Extremities: Nontender, No edema Skin: Normal color Neurological: Alert, - - She is only oriented to person, she has no focal deficits. Psychological: - - Flat somewhat indifferent affect Diagnostic/Tx/Re-eval - Rhythm Strip Rhythm Strip: Sinus Rhythm Rate: 79 Ectopy: None - EKG Initial EKG Interpretation: Sinus Rhythm, No Acute Injury Pattern, RBBB, Non-Specific ST Changes, - - Interpreted by emergency doctor - Medical Decision Making Patient has a normal emergency department work-up, she was observed in the ED she was hydrated I reevaluated her she appears better, this is likely all secondary to dehydration, I had a long discussion with the who is her it auditor he wants to take her home, risks and benefits of admission versus discharge were discussed, at this time risks of admission include pneumonia and C. difficile sundowners, he would prefer to take her home and watch her if this happens again they will return. I believe this is reasonable, she has end-stage dementia and she is taken care of at home quite well by her . ED Disposition - Plan for ED Patient: Disposition: Home or Assisted Living Instructions: WEAKNESS, Unk Cause Referrals: Trace Sanford [Primary Care Provider] - 3-5 Days
[2018-11-29] MEDS: 0.9% Normal Saline 1,000 ML 1000 ML IV (10:15)
[2018-11-29 10:29] LABS: Absolute Lymphocyte Count 1.52 X10^3/uL (0.83-4.51); Absolute Neutrophil Count 4.6 X10^3/uL (2.0-7.7); Basophil# 0.06 X10^3/uL; Basophil% 0.9 % (0-1); Eosinophil# 0.08 X10^3/uL; Eosinophils% 1.2 % (0-5); Hematocrit 45.7 % (37-47); Hemoglobin 14.9 g/dL (12.0-15.0); Lymphocyte # 1.52 X10^3/ul (4.0); Lymphocyte % 22.1 % (19-41); Mean Corp Hgb Conc 32.6 g/dL (32-36); Mean Corpuscular Hgb 30.1 pg (27.0-32.0); Mean Corpuscular Volume 92.3 fL (81-99); Mean Platelet Vol. 10.5 fl (6.2-12.0); Monocyte# 0.58 X10^3/uL; Monocyte% 8.4 % (0-10); NRBC Flagged by Analyzer 0 % (0-5); Neutrophil # 4.61 X10^3/uL (2.7-7.7); Platelet Count 170 K/mm3 (150-450); RBC Distribution Width CV 13.2 % (11.6-14.6); Red Blood Count 4.95 M/mm3 (4.2-5.4); White Blood Count 6.9 K/mm3 (4.4-11.0)
[2018-11-29 10:37] LABS: Bacteria 0 SEEN /hpf (None Seen); Mucous, Urine 0 SEEN /hpf (<or=2+); Red Blood Cells-Urine 0 SEEN /hpf (0-5); Squamous Epithelial Cells - UA 0 SEEN /hpf (5-10); White Blood Cells 0 SEEN /hpf (0-5)
[2018-11-29 10:39] LABS: Color, Urine Yellow (Yellow); Glucose, Dipstick Normal (Normal); Ketone-Dipstick Negative (Negative); Leukocyte Esterase-Dipstick Negative /ul (Negative); Nitrite-Dipstick Negative (Negative); Occult Blood-Urine Negative /ul (Negative); Protein-Dipstick Negative (Negative); Urine Bilirubin Dipstick Negative (Negative); Urine Clarity Sl. Cloudy (Clear); Urine Urobilinogen Normal (Normal)
[2018-11-29 10:50] LABS: Amorphous Sediment 2+
[2018-11-29 10:51] LABS: ALB/GLOB Ratio 0.9 RATIO (0.9-2.4); AST(SGOT) 21 U/L (15-37); Alanine Aminotransfer ALT/SGPT 18 U/L (13-56); Albumin, Serum 3.2 g/dL (3.2-5.0); Alkaline Phosphatase 93 U/L (45-117); Anion Gap 6 (5-15); BUN 11 mg/dL (7-18); BUN/Creat Ratio 10.1 RATIO (10-20); Calcium,Total 9.7 mg/dL (8.5-10.1); Chloride 107 mmol/L (98-107); Creatinine, Serum 1.09 mg/dL (0.55-1.02); EST Glomerular Filtration Rate 51 mL/min (>60); Est Glom Filt Rate - Afr Amer 62 mL/min (>60); Estimated Creatinine Clearance 31.91 ml/min; Globulin 3.7 g/dL (2.2-4.2); Glucose 119 mg/dL (74-106); Potassium 3.1 mmol/L (3.5-5.1); Protein, Total 6.9 g/dL (6.4-8.2); Sodium Level 141 mmol/L (136-145)
[2018-11-29 11:32] VITALS: BP 128/91; PULSE 61; RESP 19; O2SAT 98
[2018-11-29 12:50] VITALS: BP 100/82
== END 2018-11-29 12:59 | disposition home or self-care (01) ==
PROVIDERS: Emergency Provider Emergency Medicine; Family Provider Family Medicine
DX: R53.1 Weakness (principal); R55 Syncope and collapse; S09.90XA Unspecified injury of head, initial encounter; X58.XXXA Exposure to other specified factors, initial encounter; Y93.9 Activity, unspecified; Y92.9 Unspecified place or not applicable; F03.90 Unspecified dementia, unspecified severity, without behavioral disturbance, psychotic disturbance, mood disturbance, and anxiety; I45.10 Unspecified right bundle-branch block; Z79.899 Other long term (current) drug therapy
CPT/HCPCS: 71045; 80053; 81001; 85025; 93005; 96360; 96361; 99285; J7030; A4216

== ENCOUNTER 2018-12-24 05:58 | Emergency (ER) | payer MEDICARE, OTHER, SELFPAY ==
[2018-12-24 05:59] VITALS: BP 146/93; PULSE 64; RESP 15; TEMP 36.6; O2SAT 98; BMI 19.1
--- NOTE | 2018-12-24 06:27 | ED.VIS.GEN ---
History of Present Illness Chief Complaint: Constipation Informant: Patient, Family Limited by: Dementia Onset: Today Context: Sudden Onset Maximum Severity: Moderate Narrative: The patient is an 83-year-old female with advanced dementia who presents after syncopal episode while having a bowel movement. History is gathered from the at the bedside. Patient is rather advanced dementia. She has had decreased oral intake over the past few months. states that she does have some chronic constipation. He is concerned because she had not had a bowel movement in about 8 days. He did give her to gentle laxative last night. She woke rather abruptly at about 4:30 in the morning with diarrhea in the bed. He helped her to the toilet, but while trying to move her bowels, she did have a syncopal episode. She has had multiple syncopal episodes in the past. He was concerned because it seemed like she had hard stool that she cannot get out. She has not had fever. She had no vomiting. She is otherwise been in her normal state of health. Prior similar symptoms: Yes Recent Illness/Hospitalization: Yes Past Medical History - Allergies and Home Meds Allergies/Adverse Reactions: Allergies Penicillins [PCN] Allergy (Verified 12/24/18 06:04) Swelling Primary Care Physician: Trace Sanford [Primary Care Provider] - Prior records reviewed: Yes Past Medical History: - - Advanced dementia Surgical History: noncontributory Smoking Status: Never smoker - Family History Maternal Family History: Reports: Unknown - given her dementia, she is a poor informant. Review of Systems ROS: Unable to Obtain Physical Exam Vital Signs/Narrative: Vital Signs Temp Pulse Resp BP Pulse Ox 12/24/18 05:59 97.9 F 64 15 146/93 H 98 Inital Vital Signs reviewed: Yes General: Well nourished, Well developed, No Acute Distress Head: Normocephalic, Atraumatic Eyes: Perrl, EOMI ENT: Moist mucous membranes, No rhinorrhea Neck: Supple, Nontender Cardiovascular: Regular rate, Regular rhythm, No murmurs Respiratory: No distress, CTA bilaterally, Chest nontender Abdomen: Soft, Nontender, Nondistended, Normal bowel sounds Back: Nontender, Normal Inspection Extremities: Nontender, No edema Skin: Normal color, No rash Neurological: Alert, Cranial nerves II-XII grossly intact, Normal Strength, Normal Sensation Psychological: Normal affect, Normal Mood Diagnostic/Tx/Re-eval - Medical Decision Making The patient's syncopal event does seem vasovagal in nature. She has had recurrent syncope in the past. She is in no obvious distress. Screening labs are currently pending. With the patient's constipation, we will attempt an enema. She will be reevaluated. Impression 1. Vasovagal syncope 2. Constipation ED Disposition - Plan for ED Patient: Instructions: CONSTIPATION (Adult) Referrals: Trace Sanford [Primary Care Provider] -
[2018-12-24] MEDS: 0.9% Normal Saline 1,000 ML 1000 ML IV (06:54)
[2018-12-24 07:07] LABS: BUN 10 mg/dL (7-18); BUN/Creat Ratio 10.8 RATIO (10-20); Calcium,Total 9.6 mg/dL (8.5-10.1); Chloride 108 mmol/L (98-107); Creatinine, Serum 0.93 mg/dL (0.55-1.02); EST Glomerular Filtration Rate 61 mL/min (>60); Est Glom Filt Rate - Afr Amer 74 mL/min (>60); Estimated Creatinine Clearance 38.29 ml/min; Glucose 126 mg/dL (74-106); Potassium 3.3 mmol/L (3.5-5.1); Sodium Level 144 mmol/L (136-145)
[2018-12-24 07:08] LABS: Anion Gap 8 (5-15)
[2018-12-24 07:51] LABS: Hematocrit 45.5 % (37-47); Hemoglobin 14.8 g/dL (12.0-15.0); Lymphocyte % 20.2 % (19-41); Mean Corp Hgb Conc 32.5 g/dL (32-36); Mean Corpuscular Hgb 30.3 pg (27.0-32.0); Mean Platelet Vol. 9.9 fl (6.2-12.0); Neutrophil % 68.3 % (47-70); Platelet Count 170 K/mm3 (150-450); RBC Distribution Width CV 13.5 % (11.6-14.6); RBC Distribution Width SD 46.5 fl (35.1-43.9); Red Blood Count 4.89 M/mm3 (4.2-5.4); White Blood Count 6.6 K/mm3 (4.4-11.0)
[2018-12-24 07:52] LABS: Absolute Lymphocyte Count 1.34 X10^3/uL (0.83-4.51); Absolute Neutrophil Count 4.5 X10^3/uL (2.0-7.7); Basophil# 0.04 X10^3/uL; Basophil% 0.6 % (0-1); Eosinophil# 0.15 X10^3/uL; Eosinophils% 2.3 % (0-5); Lymphocyte # 1.34 X10^3/ul (4.0); Monocyte# 0.53 X10^3/uL; Neutrophil # 4.52 X10^3/uL (2.7-7.7)
[2018-12-24 08:20] VITALS: BP 169/82; PULSE 60; RESP 18; O2SAT 96
== END 2018-12-24 08:37 | disposition home or self-care (01) ==
LOC: ED 06:28
PROVIDERS: Emergency Provider Emergency Medicine; Family Provider Family Medicine
DX: R55 Syncope and collapse (principal); K59.09 Other constipation; F03.90 Unspecified dementia, unspecified severity, without behavioral disturbance, psychotic disturbance, mood disturbance, and anxiety; Z79.899 Other long term (current) drug therapy
CPT/HCPCS: 80048; 85025; 96360; 96361; 99285; J7030; A4216